=== PATIENT | female | born 2000 | race Two or more races ===

== ENCOUNTER 2024-04-11 04:58 | Inpatient (IN) | payer OTHER, MEDICAID, SELFPAY ==
[2024-04-11] VITALS (102 sets, daily range): BP systolic 128–169; BP diastolic 63–97; PULSE 70–107; RESP 16–17; TEMP 36.6–36.8; O2SAT 92–100; BMI 47.7
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
[2024-04-11 09:56] LABS: Basophils % (Auto) 0 % (0-2.5); Eosinophils # (Auto) 0.1 Thou/mm3 (0.0-0.5); Eosinophils % (Auto) 1 % (0-10); Hematocrit 35.6 % (36.0-46.0); Hemoglobin 12.2 g/dL (12.0-16.0); Immature Granulocytes % (Auto) 0 % (0-0); Immature Granulocytes Auto 0.05 Thou/mm3 (0.00-0.00); Lymphocytes # (Auto) 3.5 Thou/mm3 (1.0-4.8); Lymphocytes % (Auto) 25 % (10-50); Mean Corpuscular HGB Conc 34.3 g/dl (31.0-37.0); Mean Corpuscular Hemoglobin 27.9 pg (25.0-35.0); Mean Corpuscular Volume 81 fL (80-100); Monocytes # (Auto) 0.6 Thou/mm3 (0.0-0.8); Monocytes % (Auto) 5 % (0-12); Neutrophils # (Auto) 9.8 Thou/mm3 (1.8-7.7); Neutrophils % (Auto) 70 % (37-80); Nucleated Red Blood Cell % 0 /100 WBC (0); Platelet Count 254 Thou/mm3 (140-440); RDW Standard Deviation 41.7 fL (36.4-46.3); Red Blood Count 4.38 Miln/mm3 (4.00-5.20); White Blood Count 14.1 Thou/mm3 (3.6-11.0)
[2024-04-11 10:24] LABS: Alanine Aminotransferase < 7 U/L (10-49); Albumin, Serum 3.7 gm/dL (3.5-5.0); Albumin/Globulin Ratio 1.5 (1.2-2.2); Alkaline Phosphatase 130 U/L (46-116); Anion Gap 9 (7-16); Aspartate Amino Transferase < 8 U/L (0-34); BUN/Creatinine Ratio 16 Ratio (12-20); Bilirubin,Total 0.3 mg/dL (0.3-1.2); Blood Urea Nitrogen 8 mg/dL (9-23); Calcium 9.6 mg/dL (8.3-10.6); Calcium (Corrected) 9.8 mg/dL (8.5-10.1); Carbon Dioxide 21.4 mMol/L (20.0-31.0); Chloride 106 mMol/L (98-107); Creatinine (Component) 0.5 mg/dL (0.6-1.3); Estimated Creatinine Clearance 223.8 mL/min (>60); Globulin 2.4 gm/dL (2.3-3.5); Glucose 82 mg/dL (74-106); LDH (Lactate Dehydrogenase) 138 U/L (120-246); Osmolality,Calculated 269 (275-295); Sodium 136 mMol/L (136-145); Total Protein 6.1 gm/dL (5.7-8.2); Uric Acid 7.2 mg/dL (3.1-7.8); eGFR > 60 See Note
[2024-04-11 10:41] LABS: Syphilis Reactive (Nonreactive)
[2024-04-11 10:43] LABS: MHATP/TP-PA* See Sep Rpt
[2024-04-11] MEDS: metFORMIN 500 MG TABLET 1000 MG PO ×2 (10:50→20:58)
[2024-04-11] MEDS: LABETALOL 100 MG TABLET 200 MG PO ×2 (10:51→20:59)
[2024-04-11 11:02] LABS: Fibrinogen 460 mg/dL (175-375); INR 0.9 (0.9-1.3); Partial Thromboplastin Time 22.5 Seconds (22.0-36.0); Prothrombin Time 10.2 Seconds (9.0-12.2)
[2024-04-11 12:42] LABS: HIV (1&2) Antibody Rapid Non-Reactive
[2024-04-11] MEDS: OXYTOCIN in NS 30 units 30 UNIT/500 ML BAG IV (13:27)
[2024-04-12] VITALS (126 sets, daily range): BP systolic 113–182; BP diastolic 43–117; PULSE 60–113; RESP 14–20; TEMP 36.7–37.6; O2SAT 91–100
[2024-04-12] MEDS: RINGERS LACTATED 1000 ML 1,000 ML 100 ML IV (03:42)
--- NOTE | 2024-04-12 05:46 | PD.LDPN ---
Documentation for date of: 04/12/24 OB Labor Progress Note Pain Control Comments: Epidural Pelvic Exam Dilation (cm): 7-8 Effacement (%): 70 station: -2 Amniotic membrane status: Ruptured Comments: No fluid seen after AROM Contractions Contraction frequency: q3 min Status status: Category l Assessment and Plan Comments: Pt declines further trial of labor Requests Delivery Informed consent obtained: Pt made aware of the risks, complications, alternatives and benefits of the proposed procedure and she agrees. T and C 2 u pRBCs.
[2024-04-12] MEDS: ceFAZolin/D5W 2 GM IV 2 GM/100 ML BAG IV (05:50)
[2024-04-12] MEDS: FAMOTIDINE INJ 10 MG/ML VIAL 2 ML 20 MG IV (05:50)
[2024-04-12] MEDS: METOCLOPRAMIDE INJ 5 MG/ML VIAL 2 ML 10 MG IVP (05:58)
[2024-04-12] MEDS: DIPHENOXYLATE/ATROP SULF 1 TAB PO (07:50)
--- NOTE | 2024-04-12 08:18 | PD.LDDS ---
DS: Providers Provider Date of admission: 04/11/24 09:09 Primary care physician: Physician No Primary/Family Admitting Provider: Mahin Jurado MD Attending Provider on Admission: Lupe Green MD Attending Provider on DC: Patric Garland MD Discharging Provider: Patric Garland MD DS: Diagnosis Problem List Completed Was Problem List Reviewed/Reconciled?: Yes Summary/Hosp Course Peripartum Data Procedures: Procedures Operation Date: 04/12/24 06:43 <No data on this case meets the specified criteria> Time Spent with Patient Time attestation: Total time spent providing and/or coordinating discharge services: Exam Vital Signs Temp Pulse Resp BP Pulse Ox O2 Del Method 98.0 F 60 16 182/101 H 100 Room Air 04/11/24 18:37 04/12/24 06:06 04/11/24 18:37 04/12/24 06:06 04/12/24 06:17 04/11/24 05:15 Discharge Plan Plan Patient Disposition: HOME (Self Care) Patient condition on transfer: Stable Prescriptions/Referrals Prescriptions/Med Rec: New hydrocodone-acetaminophen 5-325 mg tablet 1 tab PO Q6H MDD 4 PRN (Reason: pain) Qty: 20 0RF ibuprofen 600 mg tablet 600 mg PO Q6H PRN (Reason: pain) Qty: 30 0RF PNV cmb#95-ferrous fumarate-FA [ Formula] 28 mg iron- 800 mcg tablet 1 tab PO QDAY Qty: 90 4RF Continued albuterol sulfate [ProAir HFA] 8.5 GM HFA aerosol inhaler 1 - 2 puff Inhalation Q6HR PRN (Reason: WHEEZING) Qty: 1 0RF Rx Instructions: Please give and use spacer labetalol 200 mg Tablet 200 mg PO BID Discontinued metformin 1,000 mg Tablet 1,000 mg PO BID Referrals: Patric Garland MD [Physician] - Patient/Caregiver Discharge Instructions Discharge Activity: activity as tolerated Other Discharge Activity Instructions:: Follow up office Thursday04/21/2024. Call office to confirm appointment. Education Materials: How to Breastfeed, Nutrition While , , The Benefits of Breastmilk, C Section Dc Print Language: Kenyan Stand Alone Forms: Soni Award Info., Patient Portal Info Letter Discharge Order Discharge Orders: Discharge (Routine); Ordered 04/14/24 Ordered By: Patric Garland Planned Discharge Date 04/14/24
[2024-04-12] MEDS: OXYTOCIN in NS 20 units 20 UNIT/1,000 ML BAG 125 UNIT IV ×2 (09:09→17:21)
--- NOTE | 2024-04-12 10:06 | PC.NURSE ---
MD made aware of patients Blood pressures, Per MD give Labetalol 200mg now.
[2024-04-12] MEDS: LABETALOL 100 MG TABLET 200 MG PO ×2 (10:16→21:31)
--- NOTE | 2024-04-12 10:33 | PD.LDDELS ---
Data ([facility]) Data : 1 Para: 0 Term: 0 : 0 : 0 Delivery Data ([facility]) Labor Data Stimulated/Augmented: Yes Method: Oxytocin ROM Date: 04/12/24 ROM Time: 05:35 Rupture Type: AROM Amniotic Fluid: Meconium Stained Delivery Data EDC: 04/17/24 EDC calculated by:: LMP/early US confirmation Labor Onset Stage 1 Date: 04/11/24 Labor Onset Stage 1 Time: 19:28 Labor Onset Stage 2 Date: 04/12/24 Labor Onset Stage 2 Time: 06:52 Delivery Date: 04/12/24 Delivery Time: 06:52 Gestational age (weeks): 39 Gestational age (days): 2 Placenta Delivery Date: 04/12/24 Placenta Delivery Time: 06:53 Delivered by: Patric Garland Delivery nurse: Christina Alvarez Other staff at delivery: Nursery Nurse Other staff at delivery: Nurse Other staff at delivery: Nurse Other staff at delivery: NICOLAS Other staff at delivery: Sujatha Scott Other staff at delivery: Sandi Spears Other staff at delivery: MAXIMUS BRYAN Other staff at delivery: MARIA VICTORIA LOREDO Delivery Method Delivery: Delivery Type: Primary Presentation: Vertex Position: ROT Anesthesia Type Primary Anesthesia: Epidural Secondary Anesthesia: Spinal Placenta Placenta Delivery: Manual Placenta Sent for Examination: Yes Cord Sample: Cord Blood Obtained EBL Estimated blood loss (ml): 800 Complications Complications: Uterine atony Independence Data ([facility]) Independence Data Gender: Male Infant Weight Grams: 4210 1 Minute Total: 8 5 Minute Total: 9
[2024-04-12 13:54] LABS: Basophils % (Auto) 0 % (0-2.5); Eosinophils % (Auto) 0 % (0-10); Hematocrit 31.8 % (36.0-46.0); Hemoglobin 10.8 g/dL (12.0-16.0); Immature Granulocytes % (Auto) 1 % (0-0); Lymphocytes % (Auto) 10 % (10-50); Mean Corpuscular Hemoglobin 27.7 pg (25.0-35.0); Mean Corpuscular Volume 82 fL (80-100); Monocytes # (Auto) 0.9 Thou/mm3 (0.0-0.8); Monocytes % (Auto) 4 % (0-12); Neutrophils # (Auto) 17.7 Thou/mm3 (1.8-7.7); Neutrophils % (Auto) 85 % (37-80); Nucleated Red Blood Cell % 0 /100 WBC (0); Platelet Count 229 Thou/mm3 (140-440); White Blood Count 20.7 Thou/mm3 (3.6-11.0)
--- NOTE | 2024-04-12 15:27 | PC.NURSE ---
Cleared by Gage from rn social services.
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
[2024-04-12] MEDS: KETOROLAC INJ 30 MG/ML VIAL IVP (17:22)
[2024-04-13] VITALS (8 sets, daily range): BP systolic 130–153; BP diastolic 78–92; PULSE 85–106; RESP 14–18; TEMP 36.4–37; O2SAT 97–98
[2024-04-13] MEDS: KETOROLAC INJ 30 MG/ML VIAL IVP (04:16)
[2024-04-13] MEDS: LABETALOL 100 MG TABLET 200 MG PO ×2 (08:02→20:18)
[2024-04-13] MEDS: HYDROcodone/APAP 5/325 TABLET 1 TAB PO ×2 (08:03→16:34)
[2024-04-13] MEDS: ENOXAPARIN SOD INJ 40 MG/0.4 ML SYRINGE SC (08:03)
--- NOTE | 2024-04-13 08:09 | ESOP_ITS ---
RE: ADRIANE RAY : 2000 DATE OF OPERATION: 04/12/2024 PREOPERATIVE DIAGNOSES: 1. Intrauterine at 39 weeks and 2 days. 2. Chronic hypertension. 3. Gestational diabetes mellitus, class A2, well controlled. 4. Active labor, declines further trial of induction. POSTOPERATIVE DIAGNOSES: 1. Intrauterine at 39 weeks and 2 days. 2. Chronic hypertension. 3. Gestational diabetes mellitus, class A2, well controlled. 4. Active labor, declines further trial of induction. 5. Meconium stained amniotic fluid and right occiput transverse and macrosomia. PROCEDURE PERFORMED: Primary low transverse section via Pfannenstiel skin incision. SURGEON: Patric Garland DO SOAP MAKER: Yolanda Pineda ANESTHESIA: Spinal. ANESTHESIOLOGIST: Mathew Morataya CRNA ESTIMATED BLOOD LOSS: 800 mL. COMPLICATIONS: Uterine atony responding to uterotonics. FINDINGS: A live male infant, cephalic presentation, right occiput transverse, meconium stained amniotic fluid. Apgars, see RN notes. Placenta removed complete and intact. DESCRIPTION OF PROCEDURE: After proper informed consent was obtained and the patient was made aware of the risks, complications, alternatives, and benefits of the proposed procedure, she was taken to the operating room where she underwent induction of spinal anesthesia. She was placed in dorsal supine position. She was prepped and draped in usual sterile fashion. A timeout was performed. A Pfannenstiel skin incision was made with scalpel and carried through to the underlying layer of fascia with the Bovie. The fascia was nicked in the midline and incision extended bilaterally with the Bovie. The inferior aspect of fascial incision was grasped with Clifton clamps, elevated, and the underlying rectus muscle dissected off with the Bovie. The rectus muscles were the midline. The peritoneum identified between 2 Corona clamps and entered sharply with the Metzenbaum scissors. The incision was extended superiorly and inferiorly with good visualization of bladder. The bladder blade was then inserted. The vesicouterine peritoneum was incised transversely and bladder flap created digitally. Bladder blade was reinserted. Lower uterine segment incised in transverse fashion with scalpel. The incision was extended bilaterally digitally. The infant's head delivered. The mouth and nose suctioned with bulb suction. Shoulder and body delivered atraumatically. The cord was clamped and cut. The infant sent off awaiting pediatric staff. Cord blood and gases were sent. Placenta was then removed manually. The uterus exteriorized and cleared of all clots and debris. The uterine incision was repaired with #1-0 chromic catgut suture in running locking fashion. Second layer of same suture was used to imbricate the first layer and obtained excellent hemostasis. The vesicouterine peritoneum was closed with 2-0 chromic catgut suture in running fashion. The uterus was returned to the abdomen. The gutters were cleared of all clots and debris. The peritoneum was closed with 0 chromic catgut suture in running fashion. The muscle closed with 0 chromic catgut suture in running fashion. The fascia was closed with 0 Vicryl beginning each angle and ending in center in a running fashion. Subcutaneous tissue was irrigated with normal saline solution and found to be hemostatic, closed with 2-0 chromic catgut suture in running fashion. The skin was closed with 4-0 Monocryl and Dermabond. Prineo dressing was applied. A sterile pressure dressing was applied. She tolerated the procedure well. Counts were correct. I discussed with the patient the nature of her condition, the intraoperative findings, expectation for recovery. All questions were answered. DT: 08::52 TT: 08:52:00 Ref: [id number] - TID: [id number]
--- NOTE | 2024-04-13 08:14 | ESPR_ITS ---
RE: ADRIANE RAY : 2000 DATE OF SERVICE: 04/13/2024 SUBJECTIVE: Postop day #1, the patient denies any problem or complaint. She is voiding. She is ambulating. She is tolerating diet. She is passing flatus. She denies any excessive vaginal bleeding. She denies any dizziness or lightheadedness. She denies any chest pain, palpitation, shortness of breath, or lower extremity pain. She denies any headache, change in vision, or right upper quadrant pain. She has taken labetalol for hypertension. Her RPR was initially reactive, but the titer at the [facility] was nonreactive consistent with history of treated syphilis. Her repeat HIV test was also negative. VITAL SIGNS: Blood pressure 127/70, heart rate 107, respirations 16, temperature is 99.6, pulse oximetry is 99% on room air. LUNGS: Clear to auscultation bilaterally. HEART: Regular rate and rhythm. ABDOMEN: Fundus is firm. Dressing dry and intact. EXTREMITIES: Nontender. LABORATORY DATA: Hemoglobin predelivery is 12.2, post-delivery is 10.8. ASSESSMENT: 1. Postop day #1, status post delivery. 2. Gestational diabetes mellitus, class A2 PLAN: Regular diet. Discontinue blood sugar testing. Discontinue metformin. Chronic hypertension, on labetalol, continue labetalol at 200 mg p.o. b.i.d. Remove dressing. Encourage ambulation. Discontinue IV. Possible discharge home tomorrow. DT: 04:14:33 TT: 04:40:00 Ref: [id number] - TID: [id number]
[2024-04-13] MEDS: IBUPROFEN TAB 400 MG TABLET 800 MG PO ×2 (12:51→20:21)
[2024-04-14 00:07] VITALS: BP 138/79; PULSE 86; RESP 16; TEMP 36.8; O2SAT 98
[2024-04-14] MEDS: HYDROcodone/APAP 5/325 TABLET 1 TAB PO ×2 (01:11→08:28)
[2024-04-14 04:10] VITALS: BP 151/75; PULSE 84; RESP 18; TEMP 36.9; O2SAT 98
[2024-04-14] MEDS: IBUPROFEN TAB 400 MG TABLET 800 MG PO (04:25)
[2024-04-14 08:15] VITALS: BP 127/79; BP 154/84; PULSE 82; RESP 18; TEMP 36.9; O2SAT 98
[2024-04-14 08:28] VITALS: BP 154/84; PULSE 83
[2024-04-14] MEDS: LABETALOL 100 MG TABLET 200 MG PO (08:28)
[2024-04-14] MEDS: ENOXAPARIN SOD INJ 40 MG/0.4 ML SYRINGE SC (08:29)
--- NOTE | 2024-04-14 09:23 | ESPR_ITS ---
RE: ADRIANE RAY : 2000 DATE OF SERVICE: 04/14/2024 S: Postop day #2, the patient denies any problem or complaint. She is voiding. She is ambulating. She is tolerating diet. She is passing flatus. She denies any excessive vaginal bleeding. She denies any dizziness or lightheadedness. She denies any chest pain, palpitation, shortness of breath, or lower extremity pain. She denies any depression or anxiety. VITAL SIGNS: Blood pressure 151/75, heart rate 84, respirations 18, temperature is 98.4, and pulse oximetry is 98% on room air. LUNGS: Clear to auscultation bilaterally. HEART: Regular rate and rhythm. ABDOMEN: Incision clear and intact. Fundus is firm. EXTREMITIES: Nontender. A: 1. Postop day #2, status post delivery. 2. Gestational diabetes mellitus, class A2. P: Discontinue metformin. No longer needs to check blood sugars, can follow a regular diet and we will do fasting blood sugar at 6 weeks to determine whether the patient has persisting to be diabetic. Chronic hypertension with elevated blood pressures after delivery, continue labetalol 200 mg p.o. b.i.d. Patient will monitor blood pressures at home and keep logs and followup in 1 week in the office. DT: 07:37:54 TT: 09:21:00 Ref: [id number] - TID: [id number]
== END 2024-04-14 12:00 | disposition home or self-care (01) | DRG 787 ==
LOC: S4SX 04-12 07:30 → S4NX 04-12 10:48 → S4SX 04-13 21:07 → S4NX 04-13 21:07
PROVIDERS: Admitting Provider Specialist; Visit Provider Specialist
PROC: 10D00Z1 Extraction of Products of Conception, Low, Open Approach (ICD-10-PCS; CPT 59514; principal; 2024-04-12 06:30)
DX: O24.425 Gestational diabetes mellitus in childbirth, controlled by oral hypoglycemic drugs (principal); O10.92 Unspecified pre-existing hypertension complicating childbirth; O98.32 Other infections with a predominantly sexual mode of transmission complicating childbirth; Z37.0 Single live birth; Z3A.39 39 weeks gestation of pregnancy; O77.0 Labor and delivery complicated by meconium in amniotic fluid; O36.63X0 Maternal care for excessive fetal growth, third trimester, not applicable or unspecified; A60.00 Herpesviral infection of urogenital system, unspecified; O98.12 Syphilis complicating childbirth; A53.0 Latent syphilis, unspecified as early or late; O62.2 Other uterine inertia
CPT/HCPCS: 36415; 80053; 83615; 84550; 85025; 85384; 85610; 85730; 86703; 86780; 86850; 86900; 86901; 86923; A4649; J0689; J1650; J1885; J2274; J2371; J2590; J2765; J2795; J3010; J3490; J7120; S0191; A9270; J0690; J2270